=== PATIENT | female | born 1965 | race Caucasian/White ===

== ENCOUNTER → 2016-04-28 | Outpatient (REF) ==
[~2016-04-28] MED LIST: ABILIFY5 MG PO; ASPIRIN 32325 MG/TAB PO; ASPIRIN 81M81 MG/TA2 PO; BUSPAR10 MG PO; CEPHALEXIN500 M1 PO; CLEOCIN HCL300 MG PO; CYMBALTA 30MG30 MG PO; CYMBALTA 60MG60 MG PO; DALIRESP500 MCG PO; DESYREL 100MG100 MG PO; DESYREL DIVIDO150 M1 PO; DITROPAN 5MG TAB5 MG PO; DOXYCYCLINE 10100 MG PO; FERRO-TIME325 MG PO; FERROUS SU325 MG/TAB PO; IRON TABLETS325 MG PO; KLONOPIN 1MG1 MG PO; KLONOPIN2 MG PO; LEXAPRO20 MG PO; LOPRESSOR 225 MG/TAB PO; MINIPRESS 1M1 MG/CAP PO; MINIPRESS 5M5 MG/CAP PO; MINIPRESS2 MG PO; MOTRIN 800800 MG/TAB PO; NEURONTIN300 MG/CAP PO; NITROSTAT0.3 MG SL; NITROSTAT0.4 MG/TAB SL; NORCO 325 MG-51 TAB PO; NORCO 325 MG-7.1 TAB PO; PERCOCET 325 MG1 TAB PO; PHENERGAN 25 TA25 MG PO; PRILOSEC 20MG20 MG PO; PRILOSEC10 MG PO; PRILOTC; PRINIVIL5 MG PO; PROAIR HFA0.09 MG/AC IH; REQUIP 1MG T1 MG/TAB PO; RETIN-A CR0.05 20GM TP; ROBAXIN 75750 MG/TAB PO; RT ADVAIR 228 DISKUS IH; SPRITAM500 MG PO; THEO-24 20200 MG/CAP PO; THEO-24400 MG PO; TOPROL XL 25MG25 MG PO; ULTRAM 50MG TAB50 MG PO; UNIPHYL 400MG400 MG PO; VITAMIN C500 MG PO; ZOFRAN 4MG T4 MG/TAB PO
== END ==
LOC: ZLAB.WCH 10:13
DX: Z01.89 Encounter for other specified special examinations (principal)

== ENCOUNTER 2016-07-12 15:20 | Emergency (ER) | payer MEDICAID ==
[~2016-07-12] VITALS: Ht 167.6 cm; Wt 58.2 kg
[~2016-07-12 15:20] MED LIST changes: -ABILIFY5 MG PO; -ASPIRIN 81M81 MG/TA2 PO; -BUSPAR10 MG PO; -DESYREL DIVIDO150 M1 PO; -DITROPAN 5MG TAB5 MG PO; -DOXYCYCLINE 10100 MG PO; -FERRO-TIME325 MG PO; -IRON TABLETS325 MG PO; -MINIPRESS 5M5 MG/CAP PO; -MOTRIN 800800 MG/TAB PO; -NEURONTIN300 MG/CAP PO; -NITROSTAT0.3 MG SL; -PERCOCET 325 MG1 TAB PO; -PHENERGAN 25 TA25 MG PO; -PRILOSEC10 MG PO; -PRILOTC; -RETIN-A CR0.05 20GM TP; -SPRITAM500 MG PO; -THEO-24 20200 MG/CAP PO; -TOPROL XL 25MG25 MG PO; -ULTRAM 50MG TAB50 MG PO
[2016-07-12 15:23] VITALS: TEMP 99.1
[2016-07-12 16:24] LABS: BASO # 0.1 (0.0-0.2); BASO % 0.9 % (0.0-2.0); EOS # 0.4 (0.0-0.7); EOS % 3.8 % (0-4.0); GRAN # 6.7 (1.4-6.5); GRAN % 57.7 % (42.2-75.2); HEMATOCRIT 34.5 % (37.0-47.0); HEMOGLOBIN 11.4 g/dl (12.5-16.0); LYMPH # 3.7 (1.2-3.4); MEAN CELL VOLUME 99 fl (80.0-100.0); MEAN CORPUSCULAR HEMOGLOBIN 33 pg (27.0-31.0); MEAN CORPUSCULAR HGB CONC 33 g/dl (33.0-37.0); MEAN PLATELET VOLUME 10.2 fl (7.4-10.4); MONO # 0.6 (0.1-0.6); MONO % 5.3 % (1.7-9.3); PLATELET COUNT 212 K/mm3 (130-400); RED BLOOD COUNT 3.48 M/mm3 (4.10-5.30); REDCELL DISTRIBUTION WIDTH-CV 12.1 % (11.5-14.5); WHITE BLOOD COUNT 11.6 K/mm3 (4.8-10.8)
[2016-07-12] MEDS ORDERED: ASPIRIN 81M81 MG/TA2 PO (16:26)
[2016-07-12] MEDS ORDERED: CYMBALTA 30MG30 MG PO (16:27)
[2016-07-12] MEDS ORDERED: BUSPAR10 MG PO (16:27)
[2016-07-12] MEDS ORDERED: KLONOPIN 1MG1 MG PO (16:27)
[2016-07-12] MEDS ORDERED: LEXAPRO20 MG PO (16:28)
[2016-07-12] MEDS ORDERED: MOTRIN 800800 MG/TAB PO (16:29)
[2016-07-12] MEDS ORDERED: NEURONTIN300 MG/CAP PO (16:29)
[2016-07-12] MEDS ORDERED: IRON TABLETS325 MG PO (16:29)
[2016-07-12] MEDS ORDERED: PRINIVIL5 MG PO (16:30)
[2016-07-12] MEDS ORDERED: ROBAXIN 75750 MG/TAB PO (16:30)
[2016-07-12] MEDS ORDERED: NITROSTAT0.4 MG/TAB SL (16:31)
[2016-07-12] MEDS ORDERED: LOPRESSOR 225 MG/TAB PO (16:31)
[2016-07-12] MEDS ORDERED: PRILOSEC10 MG PO (16:32)
[2016-07-12] MEDS ORDERED: MINIPRESS 1M1 MG/CAP PO (16:32)
[2016-07-12] MEDS ORDERED: PERCOCET 325 MG1 TAB PO (16:32)
[2016-07-12] MEDS ORDERED: DESYREL DIVIDO150 M1 PO (16:33)
[2016-07-12] MEDS ORDERED: DALIRESP500 MCG PO (16:33)
[2016-07-12] MEDS ORDERED: REQUIP 1MG T1 MG/TAB PO (16:33)
[2016-07-12 16:34] LABS: ADJUSTED CALCIUM 9.2 mg/dL (8.4-10.2); ALBUMIN 3.4 gm/dL (3.5-5.0); BILIRUBIN,TOTAL 0.5 mg/dL (0.0-1.0); CALCIUM 8.7 mg/dL (8.4-10.2); CREATININE, serum 0.62 mg/dL (0.52-1.25); POTASSIUM 3.8 mmol/L (3.4-5.0)
[2016-07-12] MEDS ORDERED: RETIN-A CR0.05 20GM TP (16:34)
[2016-07-12] MEDS ORDERED: VITAMIN C500 MG PO (16:34)
[2016-07-12 16:56] LABS: PH 6 (5-8); SQUAMOUS EPITHELIAL 0-2 /hpf; URINE APPEARANCE Clear; URINE BACTERIA None Seen /hpf; URINE BILIRUBIN Negative (NEGATIVE); URINE BLOOD Negative (NEGATIVE); URINE COLOR Straw; URINE GLUCOSE Negative (NEGATIVE); URINE KETONE Negative (NEGATIVE); URINE RBC 0-2 /hpf; URINE UROBILINOGEN Negative (NEGATIVE); URINE WBC 0-2 /hpf
[2016-07-12] MEDS ORDERED: DOXYCYCLINE 10100 MG PO (18:01)
[2016-07-12 18:09] VITALS: BP 108/63; PULSE 59
[2016-07-12 19:25] LABS: CHLAMYDIA/TRACH by PCR Female NOT DETECTED; NEISSERIA GON by PCR Female NOT DETECTED
== END 2016-07-12 18:19 | disposition home or self-care (01) ==
LOC: COL.ER 15:20
PROVIDERS: Emergency Medicine
DX: R10.12 Left upper quadrant pain (principal); N93.9 Abnormal uterine and vaginal bleeding, unspecified; R29.898 Other symptoms and signs involving the musculoskeletal system; N94.89 Other specified conditions associated with female genital organs and menstrual cycle
CPT/HCPCS: J1170; J2405; J7030; Q9967

== ENCOUNTER 2016-07-28 17:22 | Emergency (ER) | payer MEDICAID ==
[~2016-07-28] VITALS: Ht 167.6 cm; Wt 59.5 kg
[~2016-07-28 17:22] MED LIST changes: +ASPIRIN 81M81 MG/TA2 PO; +BUSPAR10 MG PO; +DESYREL DIVIDO150 M1 PO; +DOXYCYCLINE 10100 MG PO; +IRON TABLETS325 MG PO; +MOTRIN 800800 MG/TAB PO; +NEURONTIN300 MG/CAP PO; +PERCOCET 325 MG1 TAB PO; +PRILOSEC10 MG PO; +RETIN-A CR0.05 20GM TP
[2016-07-28 17:24] VITALS: TEMP 98.9
[2016-07-28 17:53] LABS: BASO # 0.1 (0.0-0.2); BASO % 1.1 % (0.0-2.0); EOS # 0.4 (0.0-0.7); EOS % 4.2 % (0-4.0); GRAN # 4.8 (1.4-6.5); GRAN % 51.9 % (42.2-75.2); HEMATOCRIT 38.2 % (37.0-47.0); HEMOGLOBIN 12.8 g/dl (12.5-16.0); LYMPH # 3.3 (1.2-3.4); LYMPH % 35.4 % (20.0-51.0); MEAN CELL VOLUME 98 fl (80.0-100.0); MEAN CORPUSCULAR HEMOGLOBIN 33 pg (27.0-31.0); MEAN CORPUSCULAR HGB CONC 34 g/dl (33.0-37.0); MEAN PLATELET VOLUME 10.7 fl (7.4-10.4); MONO # 0.7 (0.1-0.6); MONO % 7.1 % (1.7-9.3); PLATELET COUNT 181 K/mm3 (130-400); RED BLOOD COUNT 3.91 M/mm3 (4.10-5.30); REDCELL DISTRIBUTION WIDTH-CV 11.8 % (11.5-14.5); WHITE BLOOD COUNT 9.2 K/mm3 (4.8-10.8)
[2016-07-28 18:05] LABS: ADJUSTED CALCIUM 9.1 mg/dL (8.4-10.2); BILIRUBIN,TOTAL 0.6 mg/dL (0.0-1.0); CALCIUM 9.1 mg/dL (8.4-10.2); CREATININE, serum 0.67 mg/dL (0.52-1.25); POTASSIUM 4.2 mmol/L (3.4-5.0); TOTAL PROTEIN 6.7 gm/dL (6.4-8.2)
[2016-07-28 18:16] LABS: PH 6 (5-8); SQUAMOUS EPITHELIAL 0-2 /hpf; URINE APPEARANCE Clear; URINE BACTERIA None Seen /hpf; URINE BILIRUBIN Positive (NEGATIVE); URINE BLOOD Negative (NEGATIVE); URINE COLOR Yellow; URINE GLUCOSE Negative (NEGATIVE); URINE KETONE Trace (NEGATIVE); URINE RBC 0-2 /hpf; URINE UROBILINOGEN Negative (NEGATIVE)
[2016-07-28 19:23] VITALS: BP 110/73; PULSE 56
[2016-07-28 20:47] LABS: CHLAMYDIA/TRACH by PCR Female NOT DETECTED; NEISSERIA GON by PCR Female NOT DETECTED
[2016-07-29] MEDS ORDERED: PHENERGAN 25 TA25 MG PO (19:10)
== END 2016-07-28 19:24 | disposition home or self-care (01) ==
LOC: COL.ER 17:22
PROVIDERS: Emergency Medicine
DX: R10.31 Right lower quadrant pain (principal); J44.9 Chronic obstructive pulmonary disease, unspecified; F17.210 Nicotine dependence, cigarettes, uncomplicated; Z99.81 Dependence on supplemental oxygen; F43.10 Post-traumatic stress disorder, unspecified; I35.1 Nonrheumatic aortic (valve) insufficiency
CPT/HCPCS: J2270; J2405; Q9967

== ENCOUNTER 2016-07-29 17:09 | Emergency (ER) | payer MEDICAID ==
[~2016-07-29] VITALS: Ht 167.6 cm; Wt 57.7 kg
[2016-07-29 17:09] VITALS: TEMP 98.8
[2016-07-29 18:10] LABS: BASO # 0.1 (0.0-0.2); BASO % 1.2 % (0.0-2.0); EOS # 0.4 (0.0-0.7); EOS % 3.4 % (0-4.0); GRAN % 57.4 % (42.2-75.2); HEMATOCRIT 38.7 % (37.0-47.0); HEMOGLOBIN 12.9 g/dl (12.5-16.0); LYMPH # 3.2 (1.2-3.4); LYMPH % 31.3 % (20.0-51.0); MEAN CELL VOLUME 98 fl (80.0-100.0); MEAN CORPUSCULAR HEMOGLOBIN 33 pg (27.0-31.0); MEAN CORPUSCULAR HGB CONC 33 g/dl (33.0-37.0); MEAN PLATELET VOLUME 11.3 fl (7.4-10.4); MONO # 0.7 (0.1-0.6); MONO % 6.4 % (1.7-9.3); PLATELET COUNT 185 K/mm3 (130-400); RED BLOOD COUNT 3.94 M/mm3 (4.10-5.30); REDCELL DISTRIBUTION WIDTH-CV 11.5 % (11.5-14.5); WHITE BLOOD COUNT 10.4 K/mm3 (4.8-10.8)
[2016-07-29 18:28] LABS: ADJUSTED CALCIUM 9.3 mg/dL (8.4-10.2); ALANINE AMINOTRANSFERASE 23 U/L (9-52); ALBUMIN 4.1 gm/dL (3.5-5.0); ANION GAP 8 mmol/L (7-16); BILIRUBIN,TOTAL 0.6 mg/dL (0.0-1.0); BLOOD UREA NITROGEN 11 mg/dL (7-17); CALCIUM 9.4 mg/dL (8.4-10.2); CARBON DIOXIDE 30 mmol/L (22-30); CHLORIDE 99 mmol/L (98-107); CREATININE, serum 0.67 mg/dL (0.52-1.25); GLUCOSE 82 mg/dL (74-106); POTASSIUM 4.1 mmol/L (3.4-5.0); SODIUM 138 mmol/L (137-145); TOTAL PROTEIN 6.7 gm/dL (6.4-8.2)
[2016-07-29 18:54] LABS: ALKALINE PHOSPHATASE 76 U/L (50-136)
[2016-07-29] MEDS ORDERED: PHENERGAN 25 TA25 MG PO (19:10)
[2016-07-29 19:28] LABS: C-REACTIVE PROTEIN < 0.5 mg/dL (0.0-0.9)
[2016-07-29 20:29] VITALS: BP 110/82; PULSE 51
== END 2016-07-29 21:07 | disposition home or self-care (01) ==
LOC: COL.ER 17:09
PROVIDERS: Emergency Medicine
DX: R10.31 Right lower quadrant pain (principal); R10.32 Left lower quadrant pain; R11.2 Nausea with vomiting, unspecified; I95.9 Hypotension, unspecified; J44.9 Chronic obstructive pulmonary disease, unspecified; F17.210 Nicotine dependence, cigarettes, uncomplicated; F43.10 Post-traumatic stress disorder, unspecified
CPT/HCPCS: J0696; J1170; J1885; J2550; J7030; J7040

== ENCOUNTER 2016-08-26 17:54 | Emergency (ER) | payer MEDICAID ==
[~2016-08-26] VITALS: Ht 167.6 cm; Wt 58.2 kg
[~2016-08-26 17:54] MED LIST changes: +PHENERGAN 25 TA25 MG PO
[2016-08-26 18:03] VITALS: TEMP 98.7
[2016-08-26 18:40] LABS: BASO # 0.1 (0.0-0.2); BASO % 1.1 % (0.0-2.0); EOS # 0.5 (0.0-0.7); EOS % 4.7 % (0-4.0); GRAN # 5.2 (1.4-6.5); GRAN % 50.7 % (42.2-75.2); HEMATOCRIT 39.4 % (37.0-47.0); HEMOGLOBIN 13.4 g/dl (12.5-16.0); LYMPH # 3.7 (1.2-3.4); LYMPH % 35.9 % (20.0-51.0); MEAN CELL VOLUME 95 fl (80.0-100.0); MEAN CORPUSCULAR HEMOGLOBIN 32 pg (27.0-31.0); MEAN CORPUSCULAR HGB CONC 34 g/dl (33.0-37.0); MEAN PLATELET VOLUME 9.8 fl (7.4-10.4); MONO # 0.7 (0.1-0.6); MONO % 7.2 % (1.7-9.3); PLATELET COUNT 221 K/mm3 (130-400); RED BLOOD COUNT 4.13 M/mm3 (4.10-5.30); REDCELL DISTRIBUTION WIDTH-CV 11.6 % (11.5-14.5); WHITE BLOOD COUNT 10.3 K/mm3 (4.8-10.8)
[2016-08-26 18:54] LABS: ALANINE AMINOTRANSFERASE 15 U/L (9-52); ALBUMIN 4.4 gm/dL (3.5-5.0); ALKALINE PHOSPHATASE 71 U/L (50-136); ANION GAP 11 mmol/L (7-16); BILIRUBIN,TOTAL 0.7 mg/dL (0.0-1.0); BLOOD UREA NITROGEN 6 mg/dL (7-17); CALCIUM 9.3 mg/dL (8.4-10.2); CARBON DIOXIDE 27 mmol/L (22-30); CHLORIDE 100 mmol/L (98-107); CREATININE, serum 0.61 mg/dL (0.52-1.25); GLUCOSE 77 mg/dL (74-106); POTASSIUM 3.9 mmol/L (3.4-5.0); SODIUM 138 mmol/L (137-145); TOTAL PROTEIN 7.1 gm/dL (6.4-8.2)
[2016-08-26 18:55] LABS: C-REACTIVE PROTEIN 0.5 mg/dL (0.0-0.9)
[2016-08-26 19:00] LABS: ERYTHROCYTE SEDIMENTATION RATE 7 mm/hr (0-20)
[2016-08-26 19:03] LABS: TROPONIN-I < 0.012 ng/mL (0.000-0.034)
[2016-08-26 19:07] LABS: PROLACTIN 20.9 ng/mL (3.0-18.6)
[2016-08-26 21:24] VITALS: BP 105/65; PULSE 63
== END 2016-08-26 21:25 | disposition home or self-care (01) ==
LOC: COL.ER 17:54
PROVIDERS: Emergency Medicine
DX: R51 Headache (principal); R07.9 Chest pain, unspecified; R55 Syncope and collapse; I10 Essential (primary) hypertension; F17.210 Nicotine dependence, cigarettes, uncomplicated; G40.909 Epilepsy, unspecified, not intractable, without status epilepticus
CPT/HCPCS: J1170; J1885; J2405; J7030

== ENCOUNTER 2016-10-08 19:05 | Emergency (ER) | payer MEDICAID ==
[~2016-10-08] VITALS: Ht 167.6 cm; Wt 58.2 kg
[2016-10-08 19:07] VITALS: BP 101/55; TEMP 99.1
[2016-10-08] MEDS ORDERED: DALIRESP500 MCG PO (20:24)
[2016-10-08] MEDS ORDERED: FERRO-TIME325 MG PO (20:24)
[2016-10-08] MEDS ORDERED: NEURONTIN300 MG/CAP PO (20:24)
[2016-10-08] MEDS ORDERED: NITROSTAT0.3 MG SL (20:24)
[2016-10-08] MEDS ORDERED: TOPROL XL 25MG25 MG PO (20:25)
[2016-10-08] MEDS ORDERED: SPRITAM500 MG PO (20:26)
[2016-10-08] MEDS ORDERED: PRILOTC (20:26)
[2016-10-08] MEDS ORDERED: DITROPAN 5MG TAB5 MG PO (20:27)
[2016-10-08] MEDS ORDERED: BUSPAR10 MG PO (20:27)
[2016-10-08] MEDS ORDERED: THEO-24 20200 MG/CAP PO (20:27)
[2016-10-08] MEDS ORDERED: CYMBALTA 60MG60 MG PO (20:28)
[2016-10-08] MEDS ORDERED: DESYREL DIVIDO150 M1 PO (20:28)
[2016-10-08] MEDS ORDERED: REQUIP 1MG T1 MG/TAB PO (20:28)
[2016-10-08] MEDS ORDERED: MINIPRESS 5M5 MG/CAP PO (20:28)
[2016-10-08] MEDS ORDERED: LEXAPRO20 MG PO (20:28)
[2016-10-08] MEDS ORDERED: KLONOPIN 1MG1 MG PO (20:29)
[2016-10-08] MEDS ORDERED: ABILIFY5 MG PO (20:29)
[2016-10-08] MEDS ORDERED: ULTRAM 50MG TAB50 MG PO (21:04)
[2016-10-08 21:15] VITALS: PULSE 82
== END 2016-10-08 21:16 | disposition home or self-care (01) ==
LOC: COL.ER 19:05
DX: S06.0X9A Concussion with loss of consciousness of unspecified duration, initial encounter (principal); S00.93XA Contusion of unspecified part of head, initial encounter; M54.2 Cervicalgia; M54.89 Other dorsalgia; W19.XXXA Unspecified fall, initial encounter; R56.9 Unspecified convulsions; Z91.81 History of falling; Y92.009 Unspecified place in unspecified non-institutional (private) residence as the place of occurrence of the external cause

== ENCOUNTER → 2017-03-24 | Outpatient (CLI) | payer MEDICAID ==
[~2017-03-24] MED LIST changes: +ABILIFY5 MG PO; +DITROPAN 5MG TAB5 MG PO; +FERRO-TIME325 MG PO; +MINIPRESS 5M5 MG/CAP PO; +NITROSTAT0.3 MG SL; +PRILOTC; +SPRITAM500 MG PO; +THEO-24 20200 MG/CAP PO; +TOPROL XL 25MG25 MG PO; +ULTRAM 50MG TAB50 MG PO
== END ==
LOC: COL.RAD 13:34
DX: R42 Dizziness and giddiness (principal); R26.81 Unsteadiness on feet; R51 Headache

== ENCOUNTER 2017-07-03 19:48 | Emergency (ER) | payer MEDICAID ==
[~2017-07-03] VITALS: Ht 299.7 cm; Wt 73.2 kg
[2017-07-03 19:53] VITALS: BP 112/63; TEMP 99
[2017-07-03 20:41] LABS: BASO # 0.1 (0.0-0.2); BASO % 0.4 % (0.0-2.0); EOS # 0.4 (0.0-0.7); EOS % 3.4 % (0-4.0); GRAN # 8.8 (1.4-6.5); HEMATOCRIT 34.9 % (37.0-47.0); HEMOGLOBIN 11.8 g/dl (12.5-16.0); LYMPH # 2.2 (1.2-3.4); LYMPH % 17.8 % (20.0-51.0); MEAN CELL VOLUME 90 fl (80.0-100.0); MEAN CORPUSCULAR HEMOGLOBIN 31 pg (27.0-31.0); MEAN CORPUSCULAR HGB CONC 34 g/dl (33.0-37.0); MEAN PLATELET VOLUME 9.9 fl (7.4-10.4); MONO # 0.6 (0.1-0.6); MONO % 5.2 % (1.7-9.3); PLATELET COUNT 279 K/mm3 (130-400); RED BLOOD COUNT 3.86 M/mm3 (4.10-5.30); REDCELL DISTRIBUTION WIDTH-CV 12.7 % (11.5-14.5)
[2017-07-03 20:44] LABS: COLLECTION METHOD CLEAN CATCH
[2017-07-03 20:50] LABS: MUCOUS Present /lpf; PH 5 (5-8); URINE APPEARANCE Hazy; URINE BACTERIA Rare /hpf; URINE BILIRUBIN Negative (NEGATIVE); URINE BLOOD Negative (NEGATIVE); URINE COLOR Yellow; URINE GLUCOSE Negative (NEGATIVE); URINE KETONE Trace (NEGATIVE); URINE LEUKOCYTE ESTERASE Trace (NEGATIVE); URINE NITRATE Negative (NEGATIVE); URINE PROTEIN(semi-quant) Negative (NEGATIVE); URINE UROBILINOGEN Negative (NEGATIVE)
[2017-07-03 20:51] LABS: ALBUMIN 3.6 gm/dL (3.5-5.0); BILIRUBIN,TOTAL 0.3 mg/dL (0.0-1.0); C-REACTIVE PROTEIN 3.4 mg/dL (0.0-0.9); CALCIUM 8.6 mg/dL (8.4-10.2); CREATININE, serum 0.85 mg/dL (0.52-1.25); POTASSIUM 3.5 mmol/L (3.4-5.0)
[2017-07-03] MEDS ORDERED: LOMOTIL 0.025 M1 TAB PO (22:11)
[2017-07-03 22:44] VITALS: PULSE 79
== END 2017-07-03 22:45 | disposition home or self-care (01) ==
LOC: COL.ER 19:48
PROVIDERS: Emergency Medicine
DX: R19.7 Diarrhea, unspecified (principal); R10.9 Unspecified abdominal pain; G43.909 Migraine, unspecified, not intractable, without status migrainosus; Z90.49 Acquired absence of other specified parts of digestive tract
CPT/HCPCS: J7120; Q9967

== ENCOUNTER → 2017-07-08 | Outpatient (CLI) | payer MEDICAID ==
[~2017-07-08] MED LIST changes: +LOMOTIL 0.025 M1 TAB PO
== END ==
LOC: COL.RAD 09:55
DX: K59.00 Constipation, unspecified (principal); R63.5 Abnormal weight gain; R63.0 Anorexia; R10.9 Unspecified abdominal pain; R14.0 Abdominal distension (gaseous); R14.2 Eructation; R19.7 Diarrhea, unspecified; Z88.1 Allergy status to other antibiotic agents; Z88.0 Allergy status to penicillin
CPT/HCPCS: Q9967

== ENCOUNTER 2017-09-17 21:51 | Inpatient (IN) | payer MEDICAID ==
[~2017-09-17] VITALS: Ht 165.1 cm; Wt 78.4 kg
[2017-09-17 22:21] LABS: BASO # 0.1 (0.0-0.2); BASO % 0.7 % (0.0-2.0); EOS # 0.2 (0.0-0.7); EOS % 1.7 % (0-4.0); GRAN # 8.5 (1.4-6.5); GRAN % 63.7 % (42.2-75.2); HEMOGLOBIN 11.2 g/dl (12.5-16.0); LYMPH # 3.2 (1.2-3.4); LYMPH % 23.7 % (20.0-51.0); MEAN CELL VOLUME 95 fl (80.0-100.0); MEAN CORPUSCULAR HEMOGLOBIN 30 pg (27.0-31.0); MEAN CORPUSCULAR HGB CONC 32 g/dl (33.0-37.0); MEAN PLATELET VOLUME 9.8 fl (7.4-10.4); MONO % 7.6 % (1.7-9.3); PLATELET COUNT 320 K/mm3 (130-400); REDCELL DISTRIBUTION WIDTH-CV 13.5 % (11.5-14.5)
[2017-09-17 22:23] LABS: HEMATOCRIT 35.3 % (37.0-47.0)
[2017-09-17 22:25] LABS: INR 0.9 (0.8-3.0); PROTHROMBIN TIME 9.7 SECONDS (9.7-12.8)
[2017-09-17 22:31] LABS: ALANINE AMINOTRANSFERASE 63 U/L (9-52); ALBUMIN 3.8 gm/dL (3.5-5.0); ALKALINE PHOSPHATASE 139 U/L (50-136); ANION GAP 11 mmol/L (7-16); AST,SGOT 28 U/L (15-37); BILIRUBIN,TOTAL 0.1 mg/dL (0.0-1.0); BLOOD UREA NITROGEN 12 mg/dL (7-17); CARBON DIOXIDE 26 mmol/L (22-30); CHLORIDE 100 mmol/L (98-107); CREATINE KINASE 29 U/L (30-135); CREATININE, serum 0.64 mg/dL (0.52-1.25); GLUCOSE 98 mg/dL (74-106); LIPASE 52 U/L (23-300); SODIUM 137 mmol/L (137-145); TOTAL PROTEIN 6.7 gm/dL (6.4-8.2)
[2017-09-17 22:44] LABS: TROPONIN-I < 0.012 ng/mL (0.000-0.034)
[2017-09-17 23:02] LABS: D-DIMER < 200.00 ng/mLDDu (200-230)
[2017-09-17] MEDS ORDERED: VITAMIN C500 MG PO (23:39)
[2017-09-17] MEDS ORDERED: MAG-OX 400400 MG/TAB PO (23:40)
[2017-09-17] MEDS ORDERED: VIIBRYD40 MG PO (23:41)
[2017-09-17] MEDS ORDERED: MIDRIN 325 MG-11 CAP PO (23:42)
[2017-09-17] MEDS ORDERED: TORADOL 10MG TA10 MG PO (23:43)
[2017-09-17] MEDS ORDERED: FLEXERIL 1010 MG/TAB PO (23:43)
[2017-09-18] VITALS (528 sets, daily range): BP systolic 93–118; BP diastolic 67–72; PULSE 79–89; TEMP 97–98.3; O2SAT 90–100
[2017-09-18] MEDS ORDERED: KEPPRA 500MG500 MG PO (01:54)
[2017-09-18 03:15] LABS: COLLECTION METHOD CLEAN CATCH
[2017-09-18 03:21] LABS: PH 6 (5-8); SQUAMOUS EPITHELIAL 0-2 /hpf; URINE APPEARANCE Clear; URINE BACTERIA None Seen /hpf; URINE BILIRUBIN Negative (NEGATIVE); URINE BLOOD 2+ (NEGATIVE); URINE COLOR Yellow; URINE GLUCOSE Negative (NEGATIVE); URINE KETONE Negative (NEGATIVE); URINE LEUKOCYTE ESTERASE Negative (NEGATIVE); URINE NITRATE Negative (NEGATIVE); URINE PROTEIN(semi-quant) Negative (NEGATIVE); URINE RBC 0-2 /hpf; URINE UROBILINOGEN Negative (NEGATIVE)
[2017-09-18 05:26] LABS: MEAN CELL VOLUME 95 fl (80.0-100.0); MEAN CORPUSCULAR HGB CONC 31 g/dl (33.0-37.0); MEAN PLATELET VOLUME 9.6 fl (7.4-10.4); PLATELET COUNT 267 K/mm3 (130-400); RED BLOOD COUNT 3.25 M/mm3 (4.10-5.30); REDCELL DISTRIBUTION WIDTH-CV 13.5 % (11.5-14.5)
[2017-09-18 05:38] LABS: HEMOGLOBIN 9.7 g/dl (12.5-16.0); MEAN CORPUSCULAR HEMOGLOBIN 30 pg (27.0-31.0)
[2017-09-18 05:42] LABS: ALANINE AMINOTRANSFERASE 55 U/L (9-52); ALBUMIN 3.1 gm/dL (3.5-5.0); ALKALINE PHOSPHATASE 105 U/L (50-136); ANION GAP 7 mmol/L (7-16); AST,SGOT 26 U/L (15-37); BILIRUBIN,TOTAL 0.2 mg/dL (0.0-1.0); BLOOD UREA NITROGEN 11 mg/dL (7-17); CALCIUM 8.3 mg/dL (8.4-10.2); CARBON DIOXIDE 29 mmol/L (22-30); CHLORIDE 101 mmol/L (98-107); CHOLESTEROL 226 mg/dL (120-200); CHOLESTEROL RISK RATIO 5.3; CREATININE, serum 0.65 mg/dL (0.52-1.25); GLUCOSE 93 mg/dL (74-106); HDL CHOLESTEROL 42 mg/dL; LDL CHOLESTEROL 140 mg/dL; POTASSIUM 4.2 mmol/L (3.4-5.0); SODIUM 137 mmol/L (137-145); TOTAL PROTEIN 5.7 gm/dL (6.4-8.2); TRIGLYCERIDE 222 mg/dL
[2017-09-18 06:01] LABS: TROPONIN-I < 0.012 ng/mL (0.000-0.034)
[2017-09-18 06:04] LABS: BAND 5 % (0-10); EOSINOPHIL 2 % (0-4); LYMPHOCYTE 34 % (20.0-51.0); NEUTROPHILS 55 % (42.0-75.2)
[2017-09-18 06:05] LABS: PLATELET ESTIMATE NORMAL (NORMAL)
[2017-09-19 00:29] VITALS: BP 101/67; PULSE 75; TEMP 98.2
[2017-09-19 03:21] VITALS: BP 99/57; PULSE 77; TEMP 98.1
[2017-09-19 07:43] VITALS: BP 114/73; PULSE 77; TEMP 98.4
[2017-09-19 11:15] VITALS: BP 113/69; PULSE 80; TEMP 98
[2017-09-19 16:43] VITALS: BP 104/67; PULSE 79; TEMP 98.5
[2017-09-19 19:12] VITALS: BP 121/69; PULSE 85; TEMP 97.4
[2017-09-20] VITALS (9 sets, daily range): BP systolic 94–118; BP diastolic 51–68; PULSE 83–113; TEMP 98.4–98.6
[2017-09-20 08:43] LABS: CALCIUM 9.4 mg/dL (8.4-10.2); CREATININE, serum 0.78 mg/dL (0.52-1.25); MAGNESIUM 2.2 mg/dL (1.6-2.3); POTASSIUM 4.1 mmol/L (3.4-5.0)
[2017-09-20 08:48] LABS: HEMOGLOBIN 11.5 g/dl (12.5-16.0); MEAN CELL VOLUME 95 fl (80.0-100.0); MEAN CORPUSCULAR HEMOGLOBIN 30 pg (27.0-31.0); MEAN CORPUSCULAR HGB CONC 32 g/dl (33.0-37.0); MEAN PLATELET VOLUME 9.5 fl (7.4-10.4); PLATELET COUNT 303 K/mm3 (130-400); RED BLOOD COUNT 3.81 M/mm3 (4.10-5.30); REDCELL DISTRIBUTION WIDTH-CV 13.4 % (11.5-14.5); RETIC # 0.08 M/mm3 (0.02-0.16); RETIC % 2.1 % (0.5-3.52)
[2017-09-20 08:54] LABS: HEMATOCRIT 36.1 % (37.0-47.0)
[2017-09-20 09:23] LABS: BAND 1 % (0-10); BASOPHIL 2 % (0-2); EOSINOPHIL 4 % (0-4); LYMPHOCYTE 21 % (20.0-51.0); NEUTROPHILS 70 % (42.0-75.2); PLATELET ESTIMATE NORMAL (NORMAL); STOMATOCYTE 2+
== END 2017-09-20 13:15 | disposition home or self-care (01) | DRG 313 ==
LOC: COL.ER 21:51 → MEDICAL 23:27 → ICU 23:27 → MEDICAL 23:28
PROVIDERS: Emergency Medicine; Internal Medicine; Nurse Practitioner Family
DX: R07.89 Other chest pain (principal); I50.22 Chronic systolic (congestive) heart failure; I25.10 Atherosclerotic heart disease of native coronary artery without angina pectoris; J44.9 Chronic obstructive pulmonary disease, unspecified; M79.7 Fibromyalgia; I08.0 Rheumatic disorders of both mitral and aortic valves; G62.9 Polyneuropathy, unspecified; Z87.891 Personal history of nicotine dependence; G40.909 Epilepsy, unspecified, not intractable, without status epilepticus
CPT/HCPCS: OP; 99223-AI; 99232-AI; 99239; A9502; J1650; J2270; J2785; J3010; J7030

== ENCOUNTER 2017-10-10 13:38 | Emergency (ER) | payer MEDICAID ==
[~2017-10-10] VITALS: Ht 165.1 cm; Wt 79.5 kg
[~2017-10-10 13:38] MED LIST changes: +FLEXERIL 1010 MG/TAB PO; +KEPPRA 500MG500 MG PO; +MAG-OX 400400 MG/TAB PO; +MIDRIN 325 MG-11 CAP PO; +TORADOL 10MG TA10 MG PO; +VIIBRYD40 MG PO
[2017-10-10 13:40] VITALS: TEMP 99
[2017-10-10] MEDS ORDERED: CYMBALTA 60MG60 MG PO (13:59)
[2017-10-10] MEDS ORDERED: KEPPRA1000 MG PO (14:02)
[2017-10-10] MEDS ORDERED: KLONOPIN2 MG PO (14:03)
[2017-10-10] MEDS ORDERED: LASIX 20MG TABL20 MG PO (14:04)
[2017-10-10 14:09] LABS: BASO # 0.1 (0.0-0.2); BASO % 0.8 % (0.0-2.0); EOS # 0.3 (0.0-0.7); EOS % 2.4 % (0-4.0); GRAN # 8.9 (1.4-6.5); GRAN % 66.8 % (42.2-75.2); HEMOGLOBIN 11.1 g/dl (12.5-16.0); LYMPH # 2.9 (1.2-3.4); MEAN CELL VOLUME 93 fl (80.0-100.0); MEAN CORPUSCULAR HEMOGLOBIN 30 pg (27.0-31.0); MEAN CORPUSCULAR HGB CONC 32 g/dl (33.0-37.0); MEAN PLATELET VOLUME 9.8 fl (7.4-10.4); MONO # 0.9 (0.1-0.6); MONO % 6.5 % (1.7-9.3); PLATELET COUNT 326 K/mm3 (130-400); RED BLOOD COUNT 3.73 M/mm3 (4.10-5.30); REDCELL DISTRIBUTION WIDTH-CV 13.2 % (11.5-14.5)
[2017-10-10 14:11] LABS: INR 0.9 (0.8-3.0); PROTHROMBIN TIME 10.7 SECONDS (9.7-12.8)
[2017-10-10 14:14] LABS: HEMATOCRIT 34.8 % (37.0-47.0)
[2017-10-10 14:17] LABS: ALANINE AMINOTRANSFERASE 38 U/L (9-52); ALBUMIN 3.9 gm/dL (3.5-5.0); ALKALINE PHOSPHATASE 129 U/L (50-136); ANION GAP 10 mmol/L (7-16); AST,SGOT 21 U/L (15-37); BILIRUBIN,TOTAL 0.2 mg/dL (0.0-1.0); BLOOD UREA NITROGEN 11 mg/dL (7-17); CALCIUM 9.1 mg/dL (8.4-10.2); CARBON DIOXIDE 29 mmol/L (22-30); CHLORIDE 97 mmol/L (98-107); CREATINE KINASE 24 U/L (30-135); GLUCOSE 100 mg/dL (74-106); LIPASE 30 U/L (23-300); POTASSIUM 3.8 mmol/L (3.4-5.0); SODIUM 136 mmol/L (137-145); TOTAL PROTEIN 6.8 gm/dL (6.4-8.2)
[2017-10-10 14:32] LABS: TROPONIN-I < 0.012 ng/mL (0.000-0.034)
[2017-10-10 16:55] VITALS: BP 119/69
[2017-10-10] MEDS ORDERED: PERCOCET 325 MG1 TA2 PO (17:54)
[2017-10-10 18:10] VITALS: PULSE 80
== END 2017-10-10 18:10 | disposition home or self-care (01) ==
LOC: COL.ER 13:38
PROVIDERS: Emergency Medicine
DX: K43.2 Incisional hernia without obstruction or gangrene (principal); R07.89 Other chest pain; J44.9 Chronic obstructive pulmonary disease, unspecified; M79.7 Fibromyalgia; F43.10 Post-traumatic stress disorder, unspecified; F32.9 Major depressive disorder, single episode, unspecified; F41.9 Anxiety disorder, unspecified; Z95.5 Presence of coronary angioplasty implant and graft; Z90.49 Acquired absence of other specified parts of digestive tract; Z98.51 Tubal ligation status; Z90.89 Acquired absence of other organs
CPT/HCPCS: J2270; J3010; J7030; Q9967

== ENCOUNTER 2017-12-16 06:52 | Day surgery (SDC) | payer MEDICAID ==
[2017-12-16] VITALS (8 sets, daily range): BP systolic 92–109; BP diastolic 50–64; PULSE 77–91; TEMP 97.2–98
[~2017-12-16] VITALS: Ht 165.1 cm; Wt 77.9 kg
[~2017-12-16 06:52] MED LIST changes: +KEPPRA1000 MG PO; +LASIX 20MG TABL20 MG PO; +PERCOCET 325 MG1 TA2 PO
[2017-12-16] MEDS ORDERED: ASPIRIN 81M81 MG/TA2 PO (07:18)
[2017-12-16] MEDS ORDERED: FLEXERIL 1010 MG/TAB PO (07:20)
[2017-12-16] MEDS ORDERED: FERROUS SU325 MG/TAB PO (07:21)
[2017-12-16] MEDS ORDERED: MOTRIN 400400 MG/TAB PO (07:22)
[2017-12-16] MEDS ORDERED: TORADOL 10MG TA10 MG PO (07:22)
[2017-12-16] MEDS ORDERED: MAG-OX 400400 MG/TAB PO (07:23)
[2017-12-16] MEDS ORDERED: MOBIC15 MG PO (07:24)
[2017-12-16] MEDS ORDERED: ROXICODONE 55 MG/TAB PO (07:25)
[2017-12-16] MEDS ORDERED: PROAIR HFA0.09 MG/AC IH (07:27)
[2017-12-16] MEDS ORDERED: PROBIOTIC ACID1 EAC3 PO (07:27)
[2017-12-16] MEDS ORDERED: COMPAZINE 110 MG/TAB PO (07:28)
[2017-12-16] MEDS ORDERED: DESYREL DIVIDO150 M1 PO (07:30)
[2017-12-16] MEDS ORDERED: VITAMIN C500 MG PO (07:30)
== END 2017-12-16 14:35 | disposition home or self-care (01) ==
LOC: SDCO 06:52
DX: M23.42 Loose body in knee, left knee (principal); W19.XXXA Unspecified fall, initial encounter; M17.12 Unilateral primary osteoarthritis, left knee; Z79.82 Long term (current) use of aspirin; Z79.899 Other long term (current) drug therapy; I48.91 Unspecified atrial fibrillation; R56.9 Unspecified convulsions; G47.30 Sleep apnea, unspecified
CPT/HCPCS: J0690; J1885; J2250; J2405; J2704; J3010; J7030

== ENCOUNTER 2017-12-22 13:11 | Outpatient (RCR) | payer MEDICAID ==
[~2017-12-22 13:11] MED LIST changes: +COMPAZINE 110 MG/TAB PO; +MOBIC15 MG PO; +MOTRIN 400400 MG/TAB PO; +PROBIOTIC ACID1 EAC3 PO; +ROXICODONE 55 MG/TAB PO
== END 2018-03-22 | disposition home or self-care (01) ==
LOC: WSST
DX: R13.12 Dysphagia, oropharyngeal phase (principal)

== ENCOUNTER → 2017-12-28 | Outpatient (CLI) | payer MEDICAID | LOC: COL.RAD 08:49 | DX: G43.709 Chronic migraine without aura, not intractable, without status migrainosus (principal); R13.10 Dysphagia, unspecified | CPT/HCPCS: A9585 ==

== ENCOUNTER → 2018-07-19 | Outpatient (CLI) | payer MEDICAID | LOC: MC.RAD 09:46 | DX: Z12.31 Encounter for screening mammogram for malignant neoplasm of breast (principal) ==

== ENCOUNTER 2018-10-04 16:00 | Observation (INO) | payer MEDICAID ==
[~2018-10-04] VITALS: Ht 166.4 cm; Wt 87.9 kg
[2018-10-04 20:04] VITALS: BP 139/57; PULSE 60; TEMP 98
--- NOTE | 2018-10-04 20:19 | NUR ---
Arrived via EMS. Assessment complete. Lungs all kulkarni crackles. Heart sounds normal. Bowels active x4. Pulses strong throughout. No edema noted. Abrasion to left forearm and right foot present. INT right AC without complications. Reports pain in left chest, right neck and left face at this time. Answered yes to most suidical questions, patient placed on precautions at this time. Med rec complete. Orientated to medical floor. Call light in reach.
[2018-10-04] MEDS ORDERED: BUSPAR5 MG PO (20:24)
[2018-10-04] MEDS ORDERED: TOPROL XL 25MG25 MG PO (20:29)
[2018-10-04] MEDS ORDERED: TOPAMAX50 MG PO (20:33)
[2018-10-04] MEDS ORDERED: TYLENOL 500MG500 MG PO (20:34)
[2018-10-04] MEDS ORDERED: VITAMIN D 1001000 IU PO (20:40)
[2018-10-04 23:24] VITALS: BP 110/52; PULSE 73; TEMP 98.2
--- NOTE | 2018-10-04 23:55 | NUR ---
Reports 9/10 chest pain, right neck pain, and left facial. Provided with PRN morphine at this time. Will monitor.
[2018-10-05] VITALS (10 sets, daily range): BP systolic 110–131; BP diastolic 60–75; PULSE 67–120; TEMP 98.6–98.9
--- NOTE | 2018-10-05 05:40 | NUR ---
Patient had uneventful night. Remains in one to one suicide precautions pending psych screening this AM. Resting in bed currently.
[2018-10-05 06:11] LABS: HEMOGLOBIN 10.5 g/dl (12.5-16.0); MEAN CELL VOLUME 89 fl (80.0-100.0); MEAN CORPUSCULAR HEMOGLOBIN 28 pg (27.0-31.0); MEAN CORPUSCULAR HGB CONC 31 g/dl (33.0-37.0); MEAN PLATELET VOLUME 10.5 fl (7.4-10.4); PLATELET COUNT 274 K/mm3 (130-400); RED BLOOD COUNT 3.82 M/mm3 (4.10-5.30); REDCELL DISTRIBUTION WIDTH-CV 13.4 % (11.5-14.5)
[2018-10-05 06:16] LABS: HEMATOCRIT 34.1 % (37.0-47.0)
[2018-10-05 06:26] LABS: ANION GAP 8 mmol/L (7-16); BLOOD UREA NITROGEN 20 mg/dL (7-17); CARBON DIOXIDE 27 mmol/L (22-30); CHLORIDE 105 mmol/L (98-107); CHOLESTEROL 226 mg/dL (120-200); CREATININE, serum 0.76 (0.52-1.25); GLUCOSE 118 mg/dL (74-106); HDL CHOLESTEROL 28 mg/dL; LDL CHOLESTEROL 135 mg/dL; POTASSIUM 4.3 mmol/L (3.4-5.0); SODIUM 140 mmol/L (137-145); TRIGLYCERIDE 316 mg/dL
[2018-10-05 06:44] LABS: TROPONIN-I < 0.012 ng/mL (0.000-0.035)
[2018-10-05 06:52] LABS: BAND 1 % (0-10); EOSINOPHIL 5 % (0-4); LYMPHOCYTE 29 % (20.0-51.0); NEUTROPHILS 60 % (42.0-75.2); NUCLEATED RED BLOOD CELL 1 (0-6); PLATELET ESTIMATE NORMAL (NORMAL)
--- NOTE | 2018-10-05 07:07 | NUR ---
Report given to MELANIE Villavicencio
--- NOTE | 2018-10-05 07:29 | NUR ---
Contacted Dr. Trejo for psych screen.
--- NOTE | 2018-10-05 07:55 | NUR ---
Assessment completed, patient sleeping, easily arousable, stated chest pain is still 8-19/ 10 and nothing has helped releive the pain, heart RRR/ SR on tele, distal pulses are palpable, lungs CTA/ no resp.difficulty, she has been NPO and will have lexiscan around 0800, on visulaization and conversation with her she does not appear to be in any acute distress or discomfort, patient sleeping again by the time I left her room, 1:1 sitter in room for suicidal ideations, will continue to monitor
--- NOTE | 2018-10-05 08:30 | NUR ---
Patient is going down for Lexiscan stress test at this time
--- NOTE | 2018-10-05 11:18 | NUR ---
Patient is on suicide precautions. SW will follow up with patient after she is seen by psych.
[2018-10-05] MEDS ORDERED: CYMBALTA 60MG60 MG PO (16:51)
--- NOTE | 2018-10-05 17:44 | NUR ---
discharge orders reviewed, instructed to follow up with mental health in [place] as previously scheduled, has increased Cymbalta and instructe dto take as prescribed, IV and tele removed, she is leaving with a friend, DIRECTOR OF STRATEGY & MOBILE will escort her out the door
== END 2018-10-05 17:45 | disposition home or self-care (01) ==
LOC: MEDICAL 16:00
PROVIDERS: ADMIT Internal Medicine
DX: R07.9 Chest pain, unspecified (principal); R45.851 Suicidal ideations; F43.10 Post-traumatic stress disorder, unspecified; F41.1 Generalized anxiety disorder; F60.3 Borderline personality disorder; I25.10 Atherosclerotic heart disease of native coronary artery without angina pectoris; I50.20 Unspecified systolic (congestive) heart failure; I08.2 Rheumatic disorders of both aortic and tricuspid valves; Z95.818 Presence of other cardiac implants and grafts; M79.7 Fibromyalgia; G62.9 Polyneuropathy, unspecified; Z86.73 Personal history of transient ischemic attack (TIA), and cerebral infarction without residual deficits; G40.909 Epilepsy, unspecified, not intractable, without status epilepticus; Z79.899 Other long term (current) drug therapy; Z90.49 Acquired absence of other specified parts of digestive tract; Z79.82 Long term (current) use of aspirin; Z87.891 Personal history of nicotine dependence; Z82.49 Family history of ischemic heart disease and other diseases of the circulatory system; Z80.9 Family history of malignant neoplasm, unspecified; Z82.3 Family history of stroke; D64.9 Anemia, unspecified; Z88.0 Allergy status to penicillin
CPT/HCPCS: A9500; G0378; G0379; J1644; J2270; J2785; J7030

== ENCOUNTER 2019-04-02 12:31 | Emergency (ER) | payer MEDICAID ==
[~2019-04-02] VITALS: Ht 165.1 cm; Wt 80.9 kg
[~2019-04-02 12:31] MED LIST changes: +BUSPAR5 MG PO; +TOPAMAX50 MG PO; +TYLENOL 500MG500 MG PO; +VITAMIN D 1001000 IU PO
[2019-04-02 12:48] LABS: COLLECTION METHOD CLEAN CATCH
[2019-04-02 12:58] LABS: PH 5 (5-8); SQUAMOUS EPITHELIAL 0-2 /hpf; URINE APPEARANCE Clear; URINE BACTERIA None Seen /hpf; URINE BILIRUBIN Negative (NEGATIVE); URINE BLOOD Negative (NEGATIVE); URINE COLOR Straw; URINE GLUCOSE Negative (NEGATIVE); URINE KETONE Negative (NEGATIVE); URINE LEUKOCYTE ESTERASE Trace (NEGATIVE); URINE NITRATE Negative (NEGATIVE); URINE PROTEIN(semi-quant) Negative (NEGATIVE); URINE RBC 0-2 /hpf; URINE UROBILINOGEN Negative (NEGATIVE)
[2019-04-02 13:41] LABS: BASO # 0.1 (0.0-0.2); EOS # 0.3 (0.0-0.7); EOS % 3.1 % (0-4.0); GRAN # 5.3 (1.4-6.5); GRAN % 52.2 % (42.2-75.2); HEMOGLOBIN 10.8 g/dl (12.5-16.0); LYMPH # 3.3 (1.2-3.4); MEAN CELL VOLUME 85 fl (80.0-100.0); MEAN CORPUSCULAR HEMOGLOBIN 27 pg (27.0-31.0); MEAN CORPUSCULAR HGB CONC 32 g/dl (33.0-37.0); MEAN PLATELET VOLUME 10.8 fl (7.4-10.4); MONO # 0.9 (0.1-0.6); MONO % 8.9 % (1.7-9.3); PLATELET COUNT 279 K/mm3 (130-400); RED BLOOD COUNT 4.02 M/mm3 (4.10-5.30); REDCELL DISTRIBUTION WIDTH-CV 13.2 % (11.5-14.5)
[2019-04-02 13:55] LABS: HEMATOCRIT 34.3 % (37.0-47.0)
[2019-04-02 13:57] LABS: BILIRUBIN,TOTAL 0.3 mg/dL (0.0-1.0); CALCIUM 9.2 mg/dL (8.4-10.2); CREATININE, serum 0.7 (0.52-1.25); TOTAL PROTEIN 6.9 gm/dL (6.4-8.2)
[2019-04-02] MEDS ORDERED: NORCO 325 MG-51 TAB PO (14:44)
[2019-04-02 15:00] VITALS: BP 103/56; PULSE 79; TEMP 98.1
== END 2019-04-02 15:00 | disposition home or self-care (01) ==
LOC: COL.ER 12:31
PROVIDERS: Emergency Medicine; Physician Assistant
DX: S32.040A Wedge compression fracture of fourth lumbar vertebra, initial encounter for closed fracture (principal); R10.9 Unspecified abdominal pain; Z87.442 Personal history of urinary calculi; Z90.89 Acquired absence of other organs; Z98.51 Tubal ligation status; Z79.82 Long term (current) use of aspirin; X58.XXXA Exposure to other specified factors, initial encounter
CPT/HCPCS: J1170; J1885; J2405; J7030; Q9967

== ENCOUNTER 2019-08-28 07:03 | Day surgery (SDC) | payer MEDICAID ==
[2019-08-28] VITALS (7 sets, daily range): BP systolic 120–136; BP diastolic 68–80; PULSE 78–89; TEMP 98.2
[~2019-08-28] VITALS: Ht 165.1 cm; Wt 86.4 kg
[~2019-08-28 07:03] MED LIST changes: +AMBIEN 5MG TABLE5 MG PO; +BUSPAR DIVIDOSE15 MG PO; +FOLIC ACID 11 MG/TA1 PO; +LIPITOR 40MG TA40 MG PO; +MIRTAZAPINE7.5 MG PO; +NEURONTIN100 MG/CAP PO; +VITAMIN D 50,1.25 MG PO; +ZYPREXA10 MG PO
[2019-08-28] MEDS ORDERED: LIPITOR 40MG TA40 MG PO (07:58)
--- NOTE | 2019-08-28 10:18 | NUR ---
SEE JENNIFER FOR ALL MEDICATION ADMINISTRATION TIMES AND INTRA AND POST SEDATION ASSESSMENT
[2019-08-28] MEDS ORDERED: CLEOCIN HCL300 MG PO (10:22)
--- NOTE | 2019-08-28 11:30 | NUR ---
Report from Breonna NAVARRO. Back from laboratory associate by bed. VSS. Dressing to middle chest CD&I.
--- NOTE | 2019-08-28 12:30 | NUR ---
INT discontinued intact. Discharge instructions given. Transferred to private car by [email or web address]
== END 2019-08-28 12:30 | disposition home or self-care (01) ==
LOC: COL.CAR 07:03
DX: Z95.818 Presence of other cardiac implants and grafts (principal); I42.8 Other cardiomyopathies; J44.9 Chronic obstructive pulmonary disease, unspecified; G47.33 Obstructive sleep apnea (adult) (pediatric); I35.1 Nonrheumatic aortic (valve) insufficiency; F43.10 Post-traumatic stress disorder, unspecified; Z88.0 Allergy status to penicillin; Z88.1 Allergy status to other antibiotic agents
CPT/HCPCS: J2250; J3010; J3370; J7050

== ENCOUNTER 2020-09-08 16:11 | Emergency (ER) | payer OTHER, MEDICAID ==
[~2020-09-08] VITALS: Ht 165.1 cm; Wt 85.5 kg
[2020-09-08 16:21] VITALS: BP 133/74; PULSE 88; TEMP 98.7
[2020-09-08] MEDS ORDERED: ROBAXIN 75750 MG/TAB PO (18:37)
== END 2020-09-08 18:49 | disposition home or self-care (01) ==
LOC: COL.ER 16:11
DX: M54.5 Low back pain (principal); I25.10 Atherosclerotic heart disease of native coronary artery without angina pectoris; I11.0 Hypertensive heart disease with heart failure; I50.9 Heart failure, unspecified; G40.909 Epilepsy, unspecified, not intractable, without status epilepticus; J44.9 Chronic obstructive pulmonary disease, unspecified; F43.10 Post-traumatic stress disorder, unspecified; F41.9 Anxiety disorder, unspecified; F17.200 Nicotine dependence, unspecified, uncomplicated; Z86.73 Personal history of transient ischemic attack (TIA), and cerebral infarction without residual deficits; Z87.81 Personal history of (healed) traumatic fracture; Z98.890 Other specified postprocedural states; Z79.82 Long term (current) use of aspirin; Z79.899 Other long term (current) drug therapy; X50.1XXA Overexertion from prolonged static or awkward postures, initial encounter; Y92.59 Other trade areas as the place of occurrence of the external cause; Y99.0 Civilian activity done for income or pay

== ENCOUNTER 2020-09-24 13:50 | Outpatient (RCR) | payer OTHER | END 2020-12-16 | disposition home or self-care (01) | LOC: WSOH | DX: M51.36 Other intervertebral disc degeneration, lumbar region (principal); J45.909 Unspecified asthma, uncomplicated; M79.7 Fibromyalgia; F41.9 Anxiety disorder, unspecified; F41.8 Other specified anxiety disorders; G25.81 Restless legs syndrome; G62.9 Polyneuropathy, unspecified; I35.1 Nonrheumatic aortic (valve) insufficiency; K21.9 Gastro-esophageal reflux disease without esophagitis; K59.00 Constipation, unspecified; R32 Unspecified urinary incontinence; Z98.890 Other specified postprocedural states; Z90.89 Acquired absence of other organs; Z98.51 Tubal ligation status; Z87.81 Personal history of (healed) traumatic fracture; Y99.0 Civilian activity done for income or pay ==